=== PATIENT | female | born 2000 | race Caucasian/White ===

== ENCOUNTER 2018-01-02 16:19 | Emergency (ER) | payer BC ==
--- NOTE | 2018-01-02 16:29 | ER Report ---
History and Physical Time Seen By MD: 16:28 HPI/ROS CHIEF COMPLAINT: Numbness to right side of tongue, right cheek, right hand, right forearm. HISTORY OF PRESENT ILLNESS: 17-year-old female patient presents to the emergency room with complaint of numbness to the right side of tongue, transient numbness to the right cheek, right hand, right forearm. Patient states that earlier today she had a transient loss of vision to the right eye. She states that shortly after that she developed a headache. She states the headache has persisted although it has gotten better. She currently rates her headache a 2 out of 10. She denies having any nausea, vomiting or diarrhea. Patient states she's never had a migraine in the past. REVIEW OF SYSTEMS: Respiratory: No cough, no dyspnea. Cardiovascular: No chest pain, no palpitations. Gastrointestinal: No vomiting, no abdominal pain. Musculoskeletal: No back pain. Allergies: Coded Allergies: No Known Drug Allergies (Unverified , 01/02/18) Home Meds Active Scripts Sumatriptan Succinate (IMITREX) 25 Mg Tablet, 25 MG PO ONCE PRN for HEADACHE, #9 TAB Take 1 tab at onset of headache. May repeat x1 after 1 hour. Prov:BAMBI HUTCHINSON [employer] 01/02/18 Reported Medications Cetirizine Hcl (ZYRTEC) 10 Mg Tablet, 10 MG PO QDAY, TAB 01/02/18 Past Medical/Surgical History Patient has no pertinent medical or surgical history. Reviewed Nurses Notes: Yes Constitutional Vital Sign - Last 24 Hours 01/02/18 01/02/18 16:25 17:30 Temp 98.6 Pulse 95 71 Resp 20 18 B/P (MAP) 116/75 110/76 (87) Pulse Ox 94 94 O2 Delivery Room Air Room Air Physical Exam General Appearance: The patient is alert, has no immediate need for airway protection and no current signs of toxicity. Eyes: Pupils equal and round no injection. Extraocular movements are intact. Respiratory: Chest is non tender, lungs are clear to auscultation. Cardiac: regular rate and rhythm Gastrointestinal: Abdomen is soft and non tender, no masses, bowel sounds normal. Musculoskeletal: Neck: Neck is supple and non tender. Extremities have full range of motion and are non tender. Skin: No rashes or lesions. Neuro: Patient is alert and oriented 4, cranial nerves II through XII grossly intact. DIFFERENTIAL DIAGNOSIS: After history and physical exam differential diagnosis was considered for headache including but not limited to subarachnoid hemorrhage, migraine headache, tension headache and infectious causes such as meningitis, pharyngitis and sinusitis. Medical Decision Making Data Points Laboratory Hematology Test 01/02/18 16:25 Urine HCG, Qualitative Negative (NEGATIVE) Chemistry Test 01/02/18 16:25 Urine HCG, Qualitative Negative (NEGATIVE) Urinalysis Test 01/02/18 16:25 Urine HCG, Qualitative Negative (NEGATIVE) EKG/Imaging Imaging EXAMINATION: Head CT without intravenous contrast HISTORY: Transient numbness of right hand, headache. COMPARISON: None. TECHNIQUE: Contiguous axial images were obtained from the skull base to the vertex without intravenous contrast. Sagittal and coronal reformatted images are also submitted. One of the following dose optimization techniques was utilized in the performance of this exam: Automated exposure control; adjustment of the mA and/or kV according to the patient's size; or use of an iterative reconstruction technique. Specific details can be referenced in the facility's radiology CT exam operational policy. FINDINGS: Brain and intracranial structures: Ventricles, sulci, and cisterns are normal in size. Tinajero-white matter differentiation is maintained. No midline shift, acute hemorrhage, acute infarct, or mass. Calvarium / scalp: Negative. Skull base / visualized face: Negative. Visualized sinuses / orbits: Mild mucosal thickening in the posterior ethmoid air cells. IMPRESSION: No CT evidence of acute intracranial pathology. Report Dictated By: Pete Torres MD at 01/02/2018 5:21 PM Report E-Signed By: Pete Torres MD at 01/02/2018 5:26 PM ED Course/Re-evaluation ED Course Patient was admitted to an exam room, history and physical were obtained. Differential diagnoses were considered. On examination lungs are clear, heart is regular, abdomen soft nontender. Cranial nerves II through XII grossly intact, patient is alert and oriented 4. Since patient has not had any previous migraines a CT scan of the head was done. The results were negative. I also did an ECG which was also negative. I discussed the findings with patient. We will go ahead and discharge patient home. Patient will be given a prescription for Imitrex. She is to keep a diary of possible triggers for migraine. She is return to emergency room if condition worsens. I would like her to follow-up with her primary care provider, [facility], in one week. Patient verbalized understanding and agreement with plan. Decision to Disposition Date: Jan 02, 2018 Decision to Disposition Time: 17:21 Depart Departure Latest Vital Signs Vital Signs Date Time Temp Pulse Resp B/P (MAP) Pulse Ox O2 Delivery O2 Flow Rate FiO2 01/02/18 17:30 71 18 110/76 (87) 94 Room Air 01/02/18 16:25 98.6 Impression: Primary Impression: Migraine Condition: Improved Disposition: HOME OR SELF-CARE New Scripts Sumatriptan Succinate (IMITREX) 25 Mg Tablet 25 MG PO ONCE PRN for HEADACHE, #9 TAB Take 1 tab at onset of headache. May repeat x1 after 1 hour. Prov: BAMBI HUTCHINSON 01/02/18 Patient Instructions: Migraine Headache (ED) Additional Instructions: Increase fluid intake. Get plenty of rest. Keep a migraine journal looking for any identifiable triggers. Return to the ER if condition worsens. Follow up with [facility] in the next week. Problem Qualifiers Primary Impression: Migraine Migraine type: with aura Status migrainosus presence: without status migrainosus Intractability: not intractable Qualified Codes: G43.109 - Migraine with aura, not intractable, without status migrainosus BAMBI HUTCHINSON Jan 02, 2018 16:28
[2018-01-02] MEDS ORDERED: CETI-176 PO (16:32)
--- NOTE | 2018-01-02 17:29 | RADIOLOGY IMAGING REPORT ---
FACILITY: [facility] [place] PATIENT NAME: Dulce Maria Hernandez : 2000 MR: [id number] V: [id number] EXAM DATE: ORDERING PHYSICIAN: BAMBI HUTCHINSON TECHNOLOGIST: Location: [facility] [place] Patient: Dulce Maria Hernandez : 2000 Visit/Account:[id number] Date of Sevice: 01/02/2018 EXAMINATION: Head CT without intravenous contrast HISTORY: Transient numbness of right hand, headache. COMPARISON: None. TECHNIQUE: Contiguous axial images were obtained from the skull base to the vertex without intraven ous contrast. Sagittal and coronal reformatted images are also submitted. One of the following dose optimization techniques was utilized in the performance of this exam: Autom ated exposure control; adjustment of the mA and/or kV according to the patient's size; or use of an i terative reconstruction technique. Specific details can be referenced in the facility's radiology C T exam operational policy. FINDINGS: Brain and intracranial structures: Ventricles, sulci, and cisterns are normal in size. Tinajero-white ma tter differentiation is maintained. No midline shift, acute hemorrhage, acute infarct, or mass. Calvarium / scalp: Negative. Skull base / visualized face: Negative. Visualized sinuses / orbits: Mild mucosal thickening in the posterior ethmoid air cells. IMPRESSION: No CT evidence of acute intracranial pathology. Report Dictated By: Pete Torres MD at 01/02/2018 5:21 PM Report E-Signed By: Pete Torres MD at 01/02/2018 5:26 PM WSN:[id number]
[2018-01-02 17:30] VITALS: BP 110/76
[2018-01-02] MEDS ORDERED: SUMA25TA26 PO (17:34)
== END 2018-01-02 17:50 | disposition home or self-care (01) ==
LOC: ER 16:24
DX: G43.109 Migraine with aura, not intractable, without status migrainosus (principal)
CPT/HCPCS: 70450; 81025; 99284